=== PATIENT | female | born 1970 | race Caucasian/White ===

== ENCOUNTER 2022-02-28 21:36 | Emergency (ER) | payer OTHER ==
[~2022-02-28] VITALS: Ht 154.9 cm; Wt 68.0 kg
[2022-02-28 22:08] VITALS: BP_SYST 118
[2022-02-28 23:10] LABS: BASOPHILS % (AUTO) 0.3 % (0.0-2.0); EOSINOPHILS # (AUTO) 0.1 K/uL (0.0-0.4); EOSINOPHILS % (AUTO) 1.1 % (0.0-4.0); HEMATOCRIT 40.5 % (36-48); HEMOGLOBIN 13.6 g/dL (12.0-16.0); LYMPHOCYTES # (AUTO) 1.7 K/uL (1.0-5.5); LYMPHOCYTES % (AUTO) 14.3 % (20.5-51.5); MEAN CORPUSCULAR HEMOGLOBIN 31 pg (27-31); MEAN CORPUSCULAR HGB CONC 34 % (32-36); MEAN CORPUSCULAR VOLUME 93 fL (79.0-98.0); MONOCYTES # (AUTO) 0.8 K/uL (0.0-1.0); NEUTROPHILS # (AUTO) 9.1 K/uL (1.8-7.7); NEUTROPHILS % (AUTO) 77.3 % (40.0-70.0); PLATELET COUNT (AUTO) 203 K/uL (130-430); RED BLOOD CELL COUNT(AUTO) 4.35 MIL/uL (4.2-6.2); RED CELL DISTRIBUTION WIDTH 12.7 % (9.0-15.0); WHITE BLOOD COUNT (AUTO) 11.8 K/uL (4.8-10.8)
[2022-02-28 23:20] LABS: CALCIUM 9.9 mg/dL (8.4-11.0); CREATININE 1.03 mg/dL (0.55-1.30)
[2022-02-28 23:26] LABS: ALBUMIN 4.1 g/dL (3.4-4.8); TOTAL BILIRUBIN 0.5 mg/dL (0.0-1.0)
[2022-02-28 23:37] LABS: BILIRUBIN,URINE NEGATIVE (NEGATIVE); BLOOD, URINE NEGATIVE (NEGATIVE); CLARITY/URINE CLEAR (CLEAR); COLOR,URINE YELLOW (YELLOW); GLUCOSE,URINE NEGATIVE (NEGATIVE); KETONES,URINE NEGATIVE (NEGATIVE); LEUKOCYTE ESTERASE ,URINE 1+ (NEGATIVE); NITRITE, URINE NEGATIVE (NEGATIVE); PH,URINE 7.5 (5.0-8.0); PROTEIN URINE NEGATIVE (NEGATIVE); UROBILINOGEN,URINE 0.2 (0.2-1.0)
[2022-03-01 00:05] LABS: RBC,URINE 0-3 /HPF (0-3); WBC,URINE 0-3 /HPF (0-3)
[2022-03-01 00:06] LABS: BACTERIA,URINE None Seen /HPF (None Seen); MUCUS,URINE None Seen /LPF (None Seen)
[2022-03-01] MEDS: NACL 0.9% 1,000 ML IV ONE (01:23)
[2022-03-01] MEDS: METOCLOPRAMIDE HCL 10 MG/2 ML VIAL IVP ONE (01:24)
[2022-03-01] MEDS: MORPHINE 4 MG INJ. 4 MG/ML VIAL IVP ONE (01:24)
[2022-03-01] MEDS: KETOROLAC TROMETHAMINE 30 MG VIAL IVP ONE (01:25)
[2022-03-01] MEDS: ONDANSETRON HCL 4 MG/2 ML VIAL IVP ONE (01:25)
[2022-03-01] MEDS: PIPERACILLIN/TAZO 3.375 GM in NS 50 ML IV ONE (02:39)
[2022-03-01] MEDS ORDERED: PIPERACILLIN/TAZOBACTAM 3.375 GM/VIAL (ZOSYN) IV ONE (02:39)
[2022-03-01] MEDS ORDERED: AUG875 PO (04:14)
[2022-03-01] MEDS ORDERED: IBUP-1969 PO (04:14)
[2022-03-01] MEDS ORDERED: DOCU-144 PO (04:14)
[2022-03-01] MEDS ORDERED: HYDR-3917 PO (04:14)
[2022-03-01 04:17] VITALS: BP_SYST 111
[2022-03-01] MEDS ORDERED: ONDA-8 TL (04:17)
== END 2022-03-01 04:35 | disposition home or self-care (01) ==
LOC: SED 21:36
DX: K57.32 Diverticulitis of large intestine without perforation or abscess without bleeding (principal); Z79.899 Other long term (current) drug therapy
CPT/HCPCS: 99284; 80053; 81000; 83690; 85025; 87040; 36415; 81025; 83605; 74176; 96365; 96375; 96361; 76376; J1885; J2765; J2405; J2543; J2270; J7030